=== PATIENT | female | born 1950 | race Caucasian/White ===

== ENCOUNTER 2018-04-22 15:31 | Outpatient (CLI) | payer BC, SELFPAY ==
--- NOTE | 2018-04-22 12:20 | DI.RAD_ITS ---
SYMPTOM/DIAGNOSIS: R22.30, LOCALIZED SWELLING RIGHT LITTLE FINGER: There is some soft tissue swelling over the proximal portion of the right little finger. Minimal degenerative changes are identified. There is no evidence of a fracture or dislocation or soft tissue foreign body.
== END 2018-04-22 15:51 ==
PROVIDERS: PCP Family Medicine; Visit Provider Nurse Practitioner Family
DX: R22.31 Localized swelling, mass and lump, right upper limb (principal); M79.89 Other specified soft tissue disorders
CPT/HCPCS: 73140

== ENCOUNTER 2023-10-29 12:00 | Outpatient (REF) | payer MEDICARE, BC, SELFPAY | END 2023-10-29 12:01 | disposition home or self-care (01) | LOC: LBN 12:00 | PROVIDERS: PCP Family Medicine; Visit Provider Physician Assistant Medical | DX: N39.0 Urinary tract infection, site not specified (principal); R82.89 Other abnormal findings on cytological and histological examination of urine | CPT/HCPCS: 87086 ==

== ENCOUNTER 2023-11-22 10:39 | Outpatient (REF) | payer MEDICARE, BC, SELFPAY ==
[2023-11-22 12:56] LABS: Abs Immature Grans 0.01 10^3/uL (0.0-0.06); Absolute Basophil Count 0.01 10^3/uL (0.0-0.2); Absolute Eosinophil Count 0.23 10^3/uL (0.0-0.7); Absolute Lymphocyte Count 1.76 10^3/uL (1.2-3.4); Absolute Monocyte Count 0.48 10^3/uL (0.1-0.8); Absolute Neutrophil Count 4.37 10^3/uL (1.2-6.7); Basophils % 0.1 %; Eosinophils % 3.4 %; HCT 39.4 % (36.0-46.0); HGB 12.8 g/dL (11.2-15.7); Immature Grans % 0.1 %; Lymphocytes % 25.7 %; MCH 29.8 pg (27.0-33.0); MCHC 32.5 % (32.0-36.0); MCV 92 fL (80-95); MPV 9.6 fL (8.0-11.0); Neutrophils % 63.7 %; Platelet Count 312 10^3/uL (130-400); RBC 4.29 10^6/uL (3.93-5.22); RDW 13.5 % (11.7-14.6); RDW-SD 45.6 fL; WBC 6.86 10^3/uL (4.4-10.8)
[2023-11-22 13:06] LABS: ALT 23 U/L (14-59); AST 14 U/L (15-37); Albumin 3.5 g/dL (3.4-5.0); Alkaline Phosphatase 79 U/L (46-116); BUN 22 mg/dL (7-18); Bilirubin, Total 0.4 mg/dL (0.2-1.0); CREATININE 0.6 mg/dL (0.55-1.02); Calcium 8.9 mg/dL (8.5-10.1); Chloride 106 mmol/L (98-107); Estimated GFR 94.72 (mL/min/1.73m2); Glucose 107 mg/dL (74-106); Potassium 4.6 mmol/L (3.5-5.1); Sodium 144 mmol/L (136-145)
== END 2023-11-22 10:40 | disposition home or self-care (01) ==
LOC: LBN 10:39
PROVIDERS: PCP Family Medicine; Visit Provider Physician Assistant
DX: N76.0 Acute vaginitis (principal); N39.0 Urinary tract infection, site not specified; R10.9 Unspecified abdominal pain; B96.89 Other specified bacterial agents as the cause of diseases classified elsewhere
CPT/HCPCS: 80053; 85025; 87086; 87480; 87510; 87660

== ENCOUNTER 2024-04-15 11:51 | Outpatient (REF) | payer MEDICARE, BC, SELFPAY ==
[2024-04-15 16:16] LABS: HCT 40.3 % (36.0-46.0); HGB 13.3 g/dL (11.2-15.7); MCH 29.8 pg (27.0-33.0); MCV 90 fL (80-95); MPV 9.9 fL (8.0-11.0); Platelet Count 320 10^3/uL (130-400); RBC 4.46 10^6/uL (3.93-5.22); RDW 13.5 % (11.7-14.6); WBC 6.35 10^3/uL (4.4-10.8)
[2024-04-15 16:34] LABS: ALT 20 U/L (14-59); AST 17 U/L (15-37); Albumin 3.6 g/dL (3.4-5.0); Alkaline Phosphatase 80 U/L (46-116); Anion Gap 9.4 mmol/L (3-11); BUN 18 mg/dL (7-18); Bilirubin, Total 0.32 mg/dL (0.2-1.0); CO2 26.6 mmol/L (21.0-32.0); CREATININE 0.7 mg/dL (0.55-1.02); Calcium 9.3 mg/dL (8.5-10.1); Calculated LDL 129 mg/dL (<100); Chloride 108 mmol/L (98-107); Cholesterol 231 mg/dL (<200); Estimated GFR 91.26 (mL/min/1.73m2); Glucose 112 mg/dL (74-106); HDL Cholesterol 71 mg/dL (40-60); Potassium 4.7 mmol/L (3.5-5.1); Sodium 144 mmol/L (136-145); Total Protein 7.2 g/dL (6.4-8.2); Triglyceride 158 mg/dL (<150)
== END 2024-04-15 11:52 | disposition home or self-care (01) ==
LOC: NCHCN 11:51
PROVIDERS: PCP Family Medicine; Visit Provider Family Medicine
DX: I10 Essential (primary) hypertension (principal)
CPT/HCPCS: 80053; 80061; 85027

== ENCOUNTER 2024-06-15 13:31 | Outpatient (REF) | payer MEDICARE, BC, SELFPAY ==
[2024-06-15 15:30] LABS: FREE T4 0.99 ng/dL (0.76-1.46)
== END 2024-06-15 13:32 | disposition home or self-care (01) ==
LOC: NCHCN 13:31
PROVIDERS: PCP Family Medicine; Visit Provider Family Medicine
DX: E04.2 Nontoxic multinodular goiter (principal)
CPT/HCPCS: 84439; 84443

== ENCOUNTER 2024-11-11 10:35 | Outpatient (REF) | payer MEDICARE, BC, SELFPAY | END 2024-11-11 10:36 | disposition home or self-care (01) | LOC: LBN 10:35 | PROVIDERS: PCP Family Medicine; Visit Provider Physician Assistant | DX: N39.0 Urinary tract infection, site not specified (principal) | CPT/HCPCS: 87086 ==

== ENCOUNTER 2024-11-23 02:41 | Outpatient (CLI) | payer MEDICARE, BC, SELFPAY ==
--- NOTE | 2024-11-23 | DI.DEXA_ITS ---
Exam(s) XR DEXA BONE DENSITY W/WO NACHO EXAM: XR DEXA BONE DENSITY W/WO NACHO CLINICAL HISTORY: SCREENING FOR OSTEOROSIS ASYMPTOMATIC POSTMENOPAUSAL STATE,Z78.0 TECHNIQUE: COMPARISON: DX DEXA BONE DENSITY WITH NACHO from 12/24/2011 FINDINGS: Lateral Spine Image: Unremarkable. No compression deformities identified. Left hip: Total T-Score: 0.1. This compares to 0.3 on the prior examination. Total Z-Score: 1.8 T- and Z-scores: Within normal limits. Lumbar Spine: Total T-Score: 0.4. This compares to 0.1 on the prior examination. Total Z-Score: 2.7 T- and Z-scores: Within normal limits. IMPRESSION: No evidence of osteoporosis.
--- NOTE | 2024-11-23 | DI.MAMMO_ITS ---
Exam(s) MAMMO SCREENING EXAM: MAMMO SCREENING CLINICAL HISTORY: SCREENING, Z12.39 TECHNIQUE: Mammograms were interpreted according to the usual protocol including computer analysis w [employer] CAD system, tomosynthesis and C-view imaging. COMPARISON: 2016 and 2017 FINDINGS: The breasts are composed of mainly fatty density , Breast Density category A. No suspicious masses or suspicious microcalcifications are seen. No skin thickening or abnormal axillary lymph nodes are seen. There has been no significant change from prior exams. IMPRESSION: BI-RADS Category 1, Negative mammogram Yearly screening mammography is recommended. Breast Density - Category A, fatty density. Breast density Category C or D implies that the patient has dense breast tissue. Dense breast tissue can make it harder to find cancer on a mammogram. Dense breast tissue is also associated with an incr eased risk of breast cancer. This information about the result of the mammogram report was provided to the patient to raise their awareness. Use this report when you speak with the patient about their risks for breast cancer, which includes their family history. At that time, you may recommend additional screening tests (Ultrasoun d or MRI) as these tests may add significant information. A negative radiographic report should not delay biopsy if a dominant or clinically suspicious mass is present. Up to ten percent of cancers are not identified on mammography. A negative report may reinforce clinical impression. Adenosis and dense breasts may obscure an underlying neoplasm. False positive reports average 6 to 10%. Patient will receive a letter notifying them of these results.
--- NOTE | 2024-11-23 14:38 | DI.RAD_ITS ---
Exam(s) XR ANKLE LT COMPLETE EXAM: XR ANKLE LT COMPLETE CLINICAL HISTORY: CHRONIC LT ANKLE PAIN, M25.579 TECHNIQUE: 2D digital imaging was performed of the left ankle. Three images were obtained. AP, lat eral and oblique views were obtained. COMPARISON: No exams were available for comparison FINDINGS: BONES: No acute fracture is present. No bony destructive lesion is seen. Pes planus deformity is pres ent. There is a moderate size spur at the plantar calcaneus JOINTS:There is marked narrowing of the anterior and lateral tibial talar joint. Subchondral cysts a re seen at the tibial talar joint. Osteophytes are seen anteriorly at the joint. SOFT TISSUE: There well corticated osseous densities at the tip of the medial malleolus which are old . 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 DATA REPOSITORY: RADIATION DOSE DELIVERED:
== END 2024-11-23 03:01 ==
LOC: DI 02:42
PROVIDERS: PCP Family Medicine; Visit Provider Family Medicine
DX: Z78.0 Asymptomatic menopausal state (principal); M19.072 Primary osteoarthritis, left ankle and foot; Z12.31 Encounter for screening mammogram for malignant neoplasm of breast; Z13.820 Encounter for screening for osteoporosis
CPT/HCPCS: 77063; 77067; 77080; 73610

== ENCOUNTER 2025-03-31 18:30 | Outpatient (REF) | payer MEDICARE, BC, SELFPAY ==
[2025-03-31 16:32] LABS: Hemoglobin A1C 5.7 % (<5.7)
[2025-03-31 16:33] LABS: Anion Gap 8.2 mmol/L (3-11); BUN 19 mg/dL (7-18); CO2 26.8 mmol/L (21.0-32.0); Calcium 9.1 mg/dL (8.5-10.1); Chloride 103 mmol/L (98-107); Estimated GFR 90.70 (mL/min/1.73m2); Glucose 109 mg/dL (74-106); Potassium 4.9 mmol/L (3.5-5.1); Sodium 138 mmol/L (136-145); TSH (W/Ref FT4) 0.30 uIU/mL (0.36-3.74)
[2025-03-31 17:05] LABS: COMMENT (LAB VIEW ONLY) 58.81 mg/dL; Microalb ug/mg Crea 10.4 ug/mg Cr
== END 2025-03-31 18:31 | disposition home or self-care (01) ==
LOC: NCHCN 18:30
PROVIDERS: PCP Family Medicine; Visit Provider Family Medicine
DX: R73.03 Prediabetes (principal); I10 Essential (primary) hypertension
CPT/HCPCS: 80048; 82043; 82570; 83036; 84439; 84443

== ENCOUNTER 2025-04-14 18:05 | Outpatient (REF) | payer MEDICARE, BC, SELFPAY ==
[2025-04-14 20:50] LABS: Abs Immature Grans 0.01 10^3/uL (0.0-0.06); HCT 34.7 % (36.0-46.0); HGB 11.1 g/dL (11.2-15.7); Immature Grans % 0.2 %; MCH 28.5 pg (27.0-33.0); MCHC 32.0 % (32.0-36.0); MCV 89 fL (80-95); MPV 9.5 fL (8.0-11.0); Platelet Count 352 10^3/uL (130-400); RBC 3.89 10^6/uL (3.93-5.22); RDW 13.9 % (11.7-14.6); RDW-SD 45.1 fL; WBC 6.52 10^3/uL (4.4-10.8)
== END 2025-04-14 18:06 | disposition home or self-care (01) ==
LOC: LBN 18:05
PROVIDERS: PCP Family Medicine; Visit Provider Physician Assistant
DX: N39.0 Urinary tract infection, site not specified (principal); D64.9 Anemia, unspecified
CPT/HCPCS: 85025; 87086

== ENCOUNTER 2025-04-15 04:30 | Outpatient (CLI) | payer MEDICARE, BC, SELFPAY ==
--- NOTE | 2025-04-15 07:15 | DI.RAD_ITS ---
Exam(s) XR ANKLE RT COMPLETE EXAM: XR ANKLE RT COMPLETE CLINICAL HISTORY: Right ankle pain,m25.571. TECHNIQUE: 2D digital imaging was performed. COMPARISON: CR XR ANKLE LT COMPLETE from 11/23/2024 FINDINGS: 3 views There is abundant soft tissue swelling on both sides the ankle and calf, similar to the opposite side. There is no evidence of fracture or widening the ankle mortise. There are moderate degenerative changes in the ankle tibiotalar joint, more prominent medially. There are no degenerative subarticular cysts. The subtalar joint appears unremarkable. There is a prominent inferior calcaneal spur. Pes planus noted. No evidence of osseous tarsal coalition. IMPRESSION: Moderate-advanced degenerative changes in the tibiotalar joint but less than is evident on the opposite-left side. DATA REPOSITORY: RADIATION DOSE DELIVERED:
--- NOTE | 2025-04-15 14:10 | DI.RAD_ITS ---
Exam(s) XR ANKLE LT COMPLETE EXAM: XR ANKLE LT COMPLETE CLINICAL HISTORY: Left ankle pain,m25.572. TECHNIQUE: 2D digital imaging was performed. COMPARISON: CR XR ANKLE RT COMPLETE from 04/15/2025 FINDINGS: 3 views There is prominent soft tissue swelling on both sides the ankle and entire visualized calf. There is severe osteoarthritic degenerative changes in the ankle, most prominent on the lateral side of the ankle where there is [id number] narrowing of the tibiotalar joint and large degenerative subarticular cysts on both sides of the joint this level. There is relative sparing of the medial aspect of this joint. Multiple calcific densities are noted subjacent to the medial malleolus which have the appearance of combination of possible remote fracture and accessory ossicles/ununited apophysis. There is a area consistent with prior healed fracture in the distal 3rd of the left fibula. The sub talar-talocalcaneal joint is abnormal. Appearance probably reflects presence of osseous talocalcaneal tarsal coalition. There is pes planus. Large inferior calcaneal spur noted. 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 DATA REPOSITORY: RADIATION DOSE DELIVERED:
== END 2025-04-15 04:50 ==
LOC: DI 04:30
PROVIDERS: PCP Family Medicine; Visit Provider Podiatrist
DX: M25.572 Pain in left ankle and joints of left foot (principal); M25.571 Pain in right ankle and joints of right foot; I89.0 Lymphedema, not elsewhere classified; M19.071 Primary osteoarthritis, right ankle and foot; M19.072 Primary osteoarthritis, left ankle and foot; I73.89 Other specified peripheral vascular diseases; R60.0 Localized edema
CPT/HCPCS: 20605; 99203; J0702; J1100; 73610

== ENCOUNTER 2025-05-05 01:26 | Outpatient (CLI) | payer MEDICARE, BC, SELFPAY ==
--- NOTE | 2025-05-05 08:30 | DI.US_ITS ---
Exam(s) US LOWER EXTREMITY VENOUS RT EXAM: US LOWER EXTREMITY VENOUS RT CLINICAL HISTORY: right calf pain r/o DVT, vs solomon M79.661 PAIN RT LOWER LEG TECHNIQUE: Right lower extremity venous ultrasound performed using grayscale, color-flow, and spectral Doppler analysis. COMPARISON: No exams were available for comparison FINDINGS: The right common femoral, femoral and popliteal veins demonstrate normal compressibility, augmentation, and color Doppler. The posterior tibial veins are patent. The saphenofemoral junction is unremarkable. There is no evidence of a Solomon cyst. The soft tissues are unremarkable. IMPRESSION: No evidence of a right lower extremity DVT. DATA REPOSITORY:
== END 2025-05-05 01:46 ==
LOC: DI 01:26
PROVIDERS: PCP Family Medicine; Visit Provider Physician Assistant
DX: M79.661 Pain in right lower leg (principal)
CPT/HCPCS: 93971

== ENCOUNTER 2025-06-09 16:16 | Outpatient (REF) | payer MEDICARE, BC, SELFPAY ==
[2025-06-09 17:56] LABS: HCT 38.9 % (36.0-46.0); HGB 12.2 g/dL (11.2-15.7); MCH 28.6 pg (27.0-33.0); MCHC 31.4 % (32.0-36.0); MCV 91 fL (80-95); MPV 9.9 fL (8.0-11.0); Platelet Count 348 10^3/uL (130-400); RBC 4.27 10^6/uL (3.93-5.22); RDW 14.8 % (11.7-14.6); RDW-SD 49.5 fL; WBC 6.02 10^3/uL (4.4-10.8)
[2025-06-09 18:11] LABS: Iron 87 ug/dL (50-170); Total Iron Binding Capacity 402 ug/dL (250-425); Transferrin Sat 22 % (15-50)
[2025-06-09 18:12] LABS: Ferritin 13 ng/mL (7-271)
== END 2025-06-09 16:17 | disposition home or self-care (01) ==
LOC: NCHCN 16:16
PROVIDERS: PCP Family Medicine; Visit Provider Family Medicine
DX: D50.0 Iron deficiency anemia secondary to blood loss (chronic) (principal)
CPT/HCPCS: 85027; 82728; 83540; 83550